=== PATIENT | female | born 1950 | race Caucasian/White ===

== ENCOUNTER 2024-06-13 15:23 | Inpatient (IN) | payer MEDICARE ==
[~2024-06-13] VITALS: Ht 162.6 cm; Wt 146.1 kg
[2024-06-13 17:00] LABS: BASOPHILS % 0.3 % (0.0-1.0); HEMATOCRIT 33.6 % (34.2-44.1); HEMOGLOBIN 11.2 g/dL (12.0-16.0); LYMPHOCYTES # (AUTO) 0.8 (1.0-3.2); LYMPHOCYTES % 10.2 % (18.0-39.1); MEAN CORPUSCULAR HGB CONC 33.3 g/dL (31-35); MONOCYTES # (AUTO) 0.6 (0.2-0.8); MONOCYTES % 8.2 % (4.4-11.3); PLATELET COUNT 50 x10e3/uL (140-360); RED CELL DISTRIBUTION WIDTH 13.8 % (11.7-14.4); WHITE BLOOD COUNT 7.35 x10e3/uL (4.8-10.8)
[2024-06-13 17:34] LABS: ALBUMIN 2.3 g/dL (3.5-5.0); ALBUMIN/GLOBULIN RATIO 0.5 (0.8-2.0); BILIRUBIN,TOTAL 2.7 mg/dL (0.2-1.2); CALCIUM 8.7 mg/dL (8.4-10.2); CREATININE, SERUM 0.96 mg/dL (0.57-1.11)
[2024-06-13 17:35] LABS: INR 1.4; PROTHROMBIN TIME 17.8 seconds (11.9-14.5)
[2024-06-13 17:36] LABS: PARTIAL THROMBOPLASTIN TIME 37.4 seconds (23.8-35.5)
[2024-06-13] MEDS: TRAMADOL HCL 50 MG TAB PO ONE (17:38)
[2024-06-13] MEDS ORDERED: SODIUM CHLORIDE FLUSH 10 ML SYR INJ PRN (18:30)
[2024-06-13] MEDS ORDERED: ONDANSETRON HCL INJ 2MG/ML 2ML 2 MG/ML VIAL IV PRN (18:30)
[2024-06-13 19:21] VITALS: TEMP 99.8
[2024-06-13 20:00] VITALS: BP 135/58; PULSE 83; RESP 16; TEMP 98.8; O2SAT 97
[2024-06-13 20:06] VITALS: PULSE 78; RESP 19
[2024-06-13 21:00] VITALS: BP 135/58; PULSE 83; RESP 16; TEMP 98.8; O2SAT 97
[2024-06-13] MEDS: HYDROCODONE/APAP 5MG-325MG TAB PO PRN (22:08)
[2024-06-13] MEDS: FUROSEMIDE INJ 10 MG/ML 4 ML VIAL IV SCH (22:09)
[2024-06-13] MEDS ORDERED: FUROSEMIDE20 MG PO (22:44)
[2024-06-13] MEDS ORDERED: TRIAMCINOLONE A15 G3 EXT (22:44)
[2024-06-13] MEDS ORDERED: CARVEDILOL12.5 MG PO (22:44)
[2024-06-13] MEDS ORDERED: MUPIROCIN22 GM EXT (22:44)
[2024-06-13] MEDS ORDERED: GLIMEPIRIDE1 MG PO (22:44)
[2024-06-13] MEDS ORDERED: ASPIRIN81 MG PO (22:44)
[2024-06-13] MEDS ORDERED: FLUTICASONE PRO16 GM IH (22:44)
[2024-06-13] MEDS ORDERED: MAGNESIUM OXID500 MG PO (22:44)
[2024-06-13] MEDS ORDERED: PANTOPRAZOLE SO40 MG PO (22:44)
[2024-06-13] MEDS ORDERED: CYCLOBENZAPRINE10 MG PO (22:44)
[2024-06-13] MEDS ORDERED: D3-5000125 MCG PO (22:46)
[2024-06-14] VITALS (8 sets, daily range): BP systolic 106–134; BP diastolic 47–67; PULSE 76–93; RESP 18–23; TEMP 98.1–99.9; O2SAT 94–99
[2024-06-14 05:42] LABS: BASOPHILS % 0.1 % (0.0-1.0); HEMATOCRIT 30.2 % (34.2-44.1); HEMOGLOBIN 10.1 g/dL (12.0-16.0); LYMPHOCYTES # (AUTO) 0.9 (1.0-3.2); LYMPHOCYTES % 11.9 % (18.0-39.1); MEAN CORPUSCULAR HEMOGLOBIN 34.9 pg (28-32); MEAN CORPUSCULAR HGB CONC 33.4 g/dL (31-35); MEAN CORPUSCULAR VOLUME 104.5 fL (81-99); MONOCYTES # (AUTO) 1.1 (0.2-0.8); MONOCYTES % 13.4 % (4.4-11.3); NEUTROPHILS # (AUTO) 5.8 (2.1-6.9); NEUTROPHILS % 74.2 % (38.7-80.0); PLATELET COUNT 60 x10e3/uL (140-360); RED BLOOD COUNT 2.89 x10e6/uL (3.6-5.1); RED CELL DISTRIBUTION WIDTH 13.8 % (11.7-14.4); WHITE BLOOD COUNT 7.81 x10e3/uL (4.8-10.8)
[2024-06-14 06:16] LABS: ALBUMIN 2.1 g/dL (3.5-5.0); ALBUMIN/GLOBULIN RATIO 0.5 (0.8-2.0); ANION GAP 12.6 mmol/L (8-16); BILIRUBIN,TOTAL 2.5 mg/dL (0.2-1.2); CALCIUM 8.3 mg/dL (8.4-10.2); CREATININE, SERUM 0.99 mg/dL (0.57-1.11); POTASSIUM 3.6 mmol/L (3.5-5.1); TOTAL PROTEIN 6.4 g/dL (6.5-8.1)
[2024-06-14] MEDS ORDERED: DEXTROSE 50% SYRINGE 50 ML IV PRN (11:30)
[2024-06-14] MEDS: INSULIN LISPRO 100 UNIT/1 ML 3ML VIAL SQ SCH (11:30)
[2024-06-14] MEDS: PANTOPRAZOLE SOD 40 MG TABEC PO SCH (15:41)
[2024-06-14] MEDS: CYCLOBENZAPRINE HCL 10 MG TAB PO PRN (15:43)
[2024-06-14] MEDS: MAGNESIUM OXIDE 400 MG TAB PO SCH (17:04)
[2024-06-14] MEDS: CARVEDILOL 12.5 MG TAB PO SCH (17:05)
[2024-06-15] VITALS: BP 134/52; PULSE 95; RESP 18; TEMP 98.2; O2SAT 94
[2024-06-15 04:00] VITALS: BP 124/72; PULSE 92; RESP 16; TEMP 99.9; O2SAT 95
[2024-06-15 05:46] LABS: BASOPHILS % 0.3 % (0.0-1.0); EOSINOPHILS % 0.5 % (0.0-6.0); HEMATOCRIT 29.4 % (34.2-44.1); HEMOGLOBIN 9.8 g/dL (12.0-16.0); LYMPHOCYTES # (AUTO) 0.9 (1.0-3.2); MEAN CORPUSCULAR HGB CONC 33.3 g/dL (31-35); MONOCYTES # (AUTO) 0.8 (0.2-0.8); MONOCYTES % 12.1 % (4.4-11.3); NEUTROPHILS # (AUTO) 4.7 (2.1-6.9); NEUTROPHILS % 72.8 % (38.7-80.0); PLATELET COUNT 52 x10e3/uL (140-360); RED CELL DISTRIBUTION WIDTH 14.1 % (11.7-14.4); WHITE BLOOD COUNT 6.45 x10e3/uL (4.8-10.8)
[2024-06-15 05:58] LABS: INR 1.41; PROTHROMBIN TIME 17.9 seconds (11.9-14.5)
[2024-06-15 06:08] LABS: ANION GAP 11.4 mmol/L (8-16); CALCIUM 8.5 mg/dL (8.4-10.2); CREATININE, SERUM 1.1 mg/dL (0.57-1.11)
[2024-06-15 06:10] LABS: POTASSIUM 3.4 mmol/L (3.5-5.1)
[2024-06-15] MEDS: ASPIRIN 81 MG CHEW TAB PO SCH (08:35)
[2024-06-15] MEDS: GLIMEPIRIDE 2 MG TAB PO SCH (08:36)
[2024-06-15] MEDS: FLUTICASONE PROPIONATE NASAL SPRAY NS SCH (08:36)
[2024-06-15 09:20] VITALS: BP 124/72; PULSE 92; RESP 16; TEMP 99.9; O2SAT 95
[2024-06-15 11:41] VITALS: BP 111/60; PULSE 85; RESP 18; TEMP 99.1; O2SAT 93
[2024-06-15 16:00] VITALS: BP 114/58; PULSE 86; RESP 18; TEMP 98.6; O2SAT 95
[2024-06-15] MEDS: GABAPENTIN 100 MG CAP PO SCH (17:09)
[2024-06-15] MEDS: POTASSIUM CHLORIDE 10MEQ EA PO ONE (18:15)
[2024-06-15 20:58] VITALS: BP 131/71; PULSE 88; RESP 20; TEMP 98.9; O2SAT 95
[2024-06-15] MEDS: FUROSEMIDE INJ 10 MG/ML 4 ML VIAL IV SCH (21:08)
[2024-06-16] VITALS (8 sets, daily range): BP systolic 114–132; BP diastolic 57–74; PULSE 79–88; RESP 17–20; TEMP 98–99.2; O2SAT 94–96
[2024-06-16 05:33] LABS: BASOPHILS % 0.4 % (0.0-1.0); EOSINOPHILS # (AUTO) 0.2 (0.0-0.4); EOSINOPHILS % 2.7 % (0.0-6.0); HEMATOCRIT 29.8 % (34.2-44.1); HEMOGLOBIN 9.8 g/dL (12.0-16.0); LYMPHOCYTES % 17.6 % (18.0-39.1); MEAN CORPUSCULAR HEMOGLOBIN 34.5 pg (28-32); MEAN CORPUSCULAR HGB CONC 32.9 g/dL (31-35); MEAN CORPUSCULAR VOLUME 104.9 fL (81-99); MONOCYTES # (AUTO) 0.7 (0.2-0.8); MONOCYTES % 12.9 % (4.4-11.3); NEUTROPHILS # (AUTO) 3.6 (2.1-6.9); PLATELET COUNT 57 x10e3/uL (140-360); RED BLOOD COUNT 2.84 x10e6/uL (3.6-5.1)
[2024-06-16 05:57] LABS: ALBUMIN 1.9 g/dL (3.5-5.0); ALBUMIN/GLOBULIN RATIO 0.4 (0.8-2.0); ANION GAP 11.9 mmol/L (8-16); BILIRUBIN,TOTAL 1.5 mg/dL (0.2-1.2); CALCIUM 8.5 mg/dL (8.4-10.2); CREATININE, SERUM 1.12 mg/dL (0.57-1.11); POTASSIUM 3.9 mmol/L (3.5-5.1); TOTAL PROTEIN 6.6 g/dL (6.5-8.1)
[2024-06-17] VITALS (9 sets, daily range): BP systolic 100–137; BP diastolic 58–74; PULSE 76–87; RESP 16–23; TEMP 98–98.8; O2SAT 93–98
[2024-06-17 05:45] LABS: ANION GAP 12.5 mmol/L (8-16); CALCIUM 8.5 mg/dL (8.4-10.2); CREATININE, SERUM 1.07 mg/dL (0.57-1.11); POTASSIUM 3.5 mmol/L (3.5-5.1)
[2024-06-17] MEDS: METOLAZONE 5 MG TAB PO ONE (15:22)
[2024-06-17] MEDS: COLCHICINE 0.6 MG TAB PO SCH (18:30)
[2024-06-18] VITALS: BP 125/60; PULSE 85; RESP 18; TEMP 98.4; O2SAT 96
[2024-06-18 04:00] VITALS: BP 118/59; PULSE 78; RESP 17; TEMP 97.9; O2SAT 95
[2024-06-18 07:35] VITALS: BP 125/55; PULSE 76; RESP 15; TEMP 98.2; O2SAT 93
[2024-06-18 08:58] VITALS: BP 125/55; PULSE 76; RESP 15; TEMP 98.2; O2SAT 93
[2024-06-18 11:26] VITALS: BP 107/55; PULSE 77; RESP 18; TEMP 98.5; O2SAT 93
[2024-06-18 13:35] LABS: ANION GAP 14.2 mmol/L (8-16); CALCIUM 8.9 mg/dL (8.4-10.2); CREATININE, SERUM 1.25 mg/dL (0.57-1.11)
[2024-06-18 13:44] LABS: POTASSIUM 3.2 mmol/L (3.5-5.1)
[2024-06-18] MEDS: DOCUSATE SODIUM 100 MG CAP PO SCH (17:39)
[2024-06-18 20:00] VITALS: BP 136/67; PULSE 80; RESP 18; TEMP 98.1; O2SAT 94
[2024-06-19] VITALS (7 sets, daily range): BP systolic 115–131; BP diastolic 55–74; PULSE 70–85; RESP 17–19; TEMP 97.6–98.6; O2SAT 93–99
[2024-06-19 07:32] LABS: BASOPHILS % 0.3 % (0.0-1.0); EOSINOPHILS # (AUTO) 0.1 (0.0-0.4); EOSINOPHILS % 2.3 % (0.0-6.0); HEMATOCRIT 29.5 % (34.2-44.1); HEMOGLOBIN 10.3 g/dL (12.0-16.0); LYMPHOCYTES # (AUTO) 0.7 (1.0-3.2); LYMPHOCYTES % 17.7 % (18.0-39.1); MEAN CORPUSCULAR HEMOGLOBIN 34.8 pg (28-32); MEAN CORPUSCULAR HGB CONC 34.9 g/dL (31-35); MEAN CORPUSCULAR VOLUME 99.7 fL (81-99); MONOCYTES # (AUTO) 0.5 (0.2-0.8); MONOCYTES % 12.8 % (4.4-11.3); NEUTROPHILS # (AUTO) 2.5 (2.1-6.9); NEUTROPHILS % 66.1 % (38.7-80.0); RED BLOOD COUNT 2.96 x10e6/uL (3.6-5.1); RED CELL DISTRIBUTION WIDTH 14.1 % (11.7-14.4); WHITE BLOOD COUNT 3.84 x10e3/uL (4.8-10.8)
[2024-06-19 07:39] LABS: PLATELET COUNT 57 x10e3/uL (140-360)
[2024-06-19 07:51] LABS: CALCIUM 9.2 mg/dL (8.4-10.2); CREATININE, SERUM 1.11 mg/dL (0.57-1.11)
[2024-06-19] MEDS: POTASSIUM CHLORIDE 20 MEQ TAB CR PO ONE (11:03)
[2024-06-19] MEDS ORDERED: HYDROCODONE/APAP 5MG-325MG TAB PO PRN (13:45)
[2024-06-20] VITALS (7 sets, daily range): BP systolic 113–131; BP diastolic 52–76; PULSE 73–77; RESP 18–22; TEMP 97.4–97.9; O2SAT 95–100
[2024-06-20 05:57] LABS: CALCIUM 9.1 mg/dL (8.4-10.2); CREATININE, SERUM 1.21 mg/dL (0.57-1.11)
[2024-06-20] MEDS ORDERED: POTASSIUM CHLORIDE 10MEQ EA PO PRN (13:00)
[2024-06-20] MEDS: POTASSIUM CHLORIDE 10MEQ EA PO ONE (13:58)
[2024-06-20] MEDS ORDERED: GABAPENTIN 100 MG CAP PO SCH (21:00)
== END 2024-06-20 19:49 | DRG 607 ==
LOC: ER 15:36 → ERHOLD 18:23 → MED/SURG 20:12 → OBSVTOIN 06-15 11:06
PROVIDERS: ADMIT Internal Medicine; ATTEND Internal Medicine
DX: I89.0 Lymphedema, not elsewhere classified (principal); E66.01 Morbid (severe) obesity due to excess calories; Z68.43 Body mass index [BMI] 50.0-59.9, adult; D69.59 Other secondary thrombocytopenia; K74.60 Unspecified cirrhosis of liver; E11.9 Type 2 diabetes mellitus without complications; I10 Essential (primary) hypertension; M10.9 Gout, unspecified; K76.0 Fatty (change of) liver, not elsewhere classified; R60.0 Localized edema; Z79.82 Long term (current) use of aspirin; Z79.84 Long term (current) use of oral hypoglycemic drugs; Z90.49 Acquired absence of other specified parts of digestive tract
CPT/HCPCS: 36415; 51700; 72125; 72128; 72131; 72192; 80048; 80053; 82948; 83880; 84550; 85025; 85610; 85730; 93005; 93971; 96372; 99284; G0378; J1940

== ENCOUNTER 2024-08-04 14:33 | Inpatient (IN) | payer MEDICARE ==
[~2024-08-04] VITALS: Ht 162.6 cm; Wt 129.7 kg
[~2024-08-04 14:33] MED LIST: ASPIRIN81 MG PO; CARVEDILOL12.5 MG PO; CYCLOBENZAPRINE10 MG PO; D3-5000125 MCG PO; FLUTICASONE PRO16 GM IH; FUROSEMIDE20 MG PO; GLIMEPIRIDE1 MG PO; MAGNESIUM OXID500 MG PO; MUPIROCIN22 GM EXT; PANTOPRAZOLE SO40 MG PO; TRIAMCINOLONE A15 G3 EXT
[2024-08-04 15:04] LABS: BASOPHILS % 0.4 % (0.0-1.0); EOSINOPHILS # (AUTO) 0.1 (0.0-0.4); EOSINOPHILS % 2.2 % (0.0-6.0); HEMATOCRIT 34.1 % (34.2-44.1); HEMOGLOBIN 11.1 g/dL (12.0-16.0); LYMPHOCYTES # (AUTO) 0.8 (1.0-3.2); LYMPHOCYTES % 15.9 % (18.0-39.1); MEAN CORPUSCULAR HEMOGLOBIN 35.2 pg (28-32); MEAN CORPUSCULAR HGB CONC 32.6 g/dL (31-35); MEAN CORPUSCULAR VOLUME 108.3 fL (81-99); MONOCYTES # (AUTO) 0.5 (0.2-0.8); MONOCYTES % 9.7 % (4.4-11.3); NEUTROPHILS # (AUTO) 3.6 (2.1-6.9); NEUTROPHILS % 71.6 % (38.7-80.0); RED BLOOD COUNT 3.15 x10e6/uL (3.6-5.1); RED CELL DISTRIBUTION WIDTH 14.6 % (11.7-14.4); WHITE BLOOD COUNT 4.96 x10e3/uL (4.8-10.8)
[2024-08-04 15:05] LABS: PLATELET COUNT 67 x10e3/uL (140-360)
[2024-08-04 15:09] LABS: INR 1.23; PROTHROMBIN TIME 16.2 seconds (11.9-14.5)
[2024-08-04 15:10] LABS: PARTIAL THROMBOPLASTIN TIME 34.5 seconds (23.8-35.5)
[2024-08-04 15:16] LABS: ALBUMIN 2.5 g/dL (3.5-5.0); ALBUMIN/GLOBULIN RATIO 0.5 (0.8-2.0); ANION GAP 14.1 mmol/L (8-16); BILIRUBIN,TOTAL 2.3 mg/dL (0.2-1.2); CALCIUM 8.7 mg/dL (8.4-10.2); CREATININE, SERUM 1.12 mg/dL (0.57-1.11); POTASSIUM 4.1 mmol/L (3.5-5.1); TOTAL PROTEIN 7.4 g/dL (6.5-8.1)
[2024-08-04] MEDS ORDERED: SODIUM CHLORIDE FLUSH 10 ML SYR INJ PRN (18:00)
[2024-08-04] MEDS ORDERED: ONDANSETRON HCL INJ 2MG/ML 2ML 2 MG/ML VIAL IV PRN (18:00)
[2024-08-04] MEDS: FUROSEMIDE INJ 10 MG/ML 4 ML VIAL IV SCH (18:52)
[2024-08-04 19:03] VITALS: PULSE 94; RESP 20; TEMP 98.5
[2024-08-04 20:14] VITALS: BP 126/63; PULSE 80; RESP 20; TEMP 97.2; O2SAT 95
[2024-08-04 23:02] VITALS: BP 148/60; PULSE 89; RESP 20; TEMP 97.9; O2SAT 100
[2024-08-04 23:05] VITALS: BP 112/46; PULSE 88; RESP 21; TEMP 97.9; O2SAT 99
[2024-08-04] MEDS: ACETAMINOPHEN 325 MG TAB PO PRN (23:27)
[2024-08-05] VITALS (9 sets, daily range): BP systolic 112–122; BP diastolic 46–64; PULSE 75–88; RESP 18–50; TEMP 96.5–98.2; O2SAT 96–100
[2024-08-05] MEDS ORDERED: ALBUTEROL SULF 0.083% NEB SOLN 3 ML NEB NEB PRN (01:00)
[2024-08-05] MEDS ORDERED: MELATONIN 3 MG TAB PO PRN (01:00)
[2024-08-05] MEDS ORDERED: GUAIFENESIN/DEXTROMETHORPHAN LIQD 5 ML UDC PO PRN (01:00)
[2024-08-05] MEDS ORDERED: DEXTROSE 50% SYRINGE 50 ML IV PRN (01:00)
[2024-08-05] MEDS ORDERED: POLYETHYLENE GLYCOL 3350 17 GM PACK PO PRN (01:00)
[2024-08-05] MEDS ORDERED: HYDRALAZINE HCL 20 MG/ML VIAL IV PRN (01:00)
[2024-08-05 06:17] LABS: BASOPHILS % 0.5 % (0.0-1.0); EOSINOPHILS # (AUTO) 0.1 (0.0-0.4); EOSINOPHILS % 2.4 % (0.0-6.0); HEMATOCRIT 28.5 % (34.2-44.1); HEMOGLOBIN 9.3 g/dL (12.0-16.0); LYMPHOCYTES # (AUTO) 0.9 (1.0-3.2); LYMPHOCYTES % 22.3 % (18.0-39.1); MEAN CORPUSCULAR HEMOGLOBIN 35.4 pg (28-32); MEAN CORPUSCULAR HGB CONC 32.6 g/dL (31-35); MEAN CORPUSCULAR VOLUME 108.4 fL (81-99); MONOCYTES # (AUTO) 0.6 (0.2-0.8); MONOCYTES % 14.7 % (4.4-11.3); NEUTROPHILS # (AUTO) 2.3 (2.1-6.9); NEUTROPHILS % 59.8 % (38.7-80.0); PLATELET COUNT 56 x10e3/uL (140-360); RED BLOOD COUNT 2.63 x10e6/uL (3.6-5.1); RED CELL DISTRIBUTION WIDTH 14.8 % (11.7-14.4); WHITE BLOOD COUNT 3.81 x10e3/uL (4.8-10.8)
[2024-08-05] MEDS: FUROSEMIDE INJ 10 MG/ML 4 ML VIAL IV SCH (06:44)
[2024-08-05 06:48] LABS: ALBUMIN 2.1 g/dL (3.5-5.0); ALBUMIN/GLOBULIN RATIO 0.5 (0.8-2.0); ANION GAP 12.3 mmol/L (8-16); BILIRUBIN,TOTAL 1.6 mg/dL (0.2-1.2); CALCIUM 8.2 mg/dL (8.4-10.2); CREATININE, SERUM 0.96 mg/dL (0.57-1.11); TOTAL PROTEIN 6.2 g/dL (6.5-8.1)
[2024-08-05 06:57] LABS: POTASSIUM 3.3 mmol/L (3.5-5.1)
[2024-08-05] MEDS: INSULIN REGULAR, HUMAN 100 UNIT/1 ML SQ SCH (07:30)
[2024-08-05] MEDS: PANTOPRAZOLE SOD 40 MG TABEC PO SCH (08:17)
[2024-08-05] MEDS: DOCUSATE SODIUM 100 MG CAP PO SCH (08:17)
[2024-08-05] MEDS: ASPIRIN 81 MG CHEW TAB PO SCH (08:17)
[2024-08-05] MEDS: CARVEDILOL 12.5 MG TAB PO SCH (08:17)
[2024-08-05] MEDS: FLUTICASONE PROPIONATE NASAL SPRAY NS SCH (10:03)
[2024-08-05] MEDS ORDERED: ONDANSETRON HCL INJ 2MG/ML 2ML 2 MG/ML VIAL IV PRN (11:30)
[2024-08-05] MEDS: POTASSIUM CHLORIDE 10MEQ/100ML 100 ML IV ONE (11:55)
[2024-08-05] MEDS: POTASSIUM CHLORIDE 20 MEQ TAB CR PO ONE (14:14)
[2024-08-05] MEDS: MUPIROCIN 2% OINT 22 GM TUBE TOP SCH (16:00)
[2024-08-05] MEDS: SODIUM CHLORIDE 0.9% 500ML 500 ML ONE (19:06)
[2024-08-06] VITALS (9 sets, daily range): BP systolic 115–134; BP diastolic 61–75; PULSE 77–104; RESP 18–20; TEMP 97.9–98.7; O2SAT 93–99
[2024-08-06 06:08] LABS: ANION GAP 13.2 mmol/L (8-16); CALCIUM 8.2 mg/dL (8.4-10.2); CREATININE, SERUM 0.93 mg/dL (0.57-1.11); POTASSIUM 3.2 mmol/L (3.5-5.1)
[2024-08-06] MEDS: SPIRONOLACTONE 25 MG TAB PO SCH (14:27)
[2024-08-06] MEDS: MAGNESIUM OXIDE 400 MG TAB PO SCH (16:58)
[2024-08-06] MEDS: TRIAMCINOLONE 0.1% OINTMENT 15 GM TUBE TOP SCH (17:00)
[2024-08-06] MEDS: POTASSIUM CHLORIDE 10MEQ EA PO PRN (17:05)
[2024-08-06 22:57] LABS: % IRON SATURATION 33 % (15-50); IRON 66 ug/dL (50-170); TOTAL IRON BINDING CAPACITY 202 ug/dL (261-478); TRANSFERRIN 144 mg/dL (180-382)
[2024-08-07] VITALS (11 sets, daily range): BP systolic 106–138; BP diastolic 62–98; PULSE 60–87; RESP 18–20; TEMP 98–98.6; O2SAT 95–100
[2024-08-07 05:46] LABS: BASOPHILS % 0.2 % (0.0-1.0); EOSINOPHILS # (AUTO) 0.1 (0.0-0.4); EOSINOPHILS % 3.4 % (0.0-6.0); HEMATOCRIT 30.4 % (34.2-44.1); HEMOGLOBIN 9.9 g/dL (12.0-16.0); LYMPHOCYTES # (AUTO) 0.9 (1.0-3.2); LYMPHOCYTES % 21.5 % (18.0-39.1); MEAN CORPUSCULAR HEMOGLOBIN 35.1 pg (28-32); MEAN CORPUSCULAR HGB CONC 32.6 g/dL (31-35); MEAN CORPUSCULAR VOLUME 107.8 fL (81-99); MONOCYTES # (AUTO) 0.5 (0.2-0.8); MONOCYTES % 11.5 % (4.4-11.3); NEUTROPHILS # (AUTO) 2.6 (2.1-6.9); NEUTROPHILS % 63.2 % (38.7-80.0); PLATELET COUNT 56 x10e3/uL (140-360); RED BLOOD COUNT 2.82 x10e6/uL (3.6-5.1); RED CELL DISTRIBUTION WIDTH 14.6 % (11.7-14.4)
[2024-08-07 06:22] LABS: ANION GAP 14.3 mmol/L (8-16); CALCIUM 8.3 mg/dL (8.4-10.2); CREATININE, SERUM 1.01 mg/dL (0.57-1.11)
[2024-08-07 06:23] LABS: POTASSIUM 3.3 mmol/L (3.5-5.1)
[2024-08-07] MEDS: GLIMEPIRIDE 2 MG TAB PO SCH (08:38)
[2024-08-07] MEDS: DOXYCYCLINE HYCLATE TABLET 100 MG TAB PO SCH (21:13)
[2024-08-08] VITALS (11 sets, daily range): BP systolic 107–133; BP diastolic 54–76; PULSE 68–87; RESP 18–20; TEMP 97.5–98.7; O2SAT 96–100
[2024-08-08 05:57] LABS: BASOPHILS % 0.5 % (0.0-1.0); EOSINOPHILS # (AUTO) 0.1 (0.0-0.4); EOSINOPHILS % 2.5 % (0.0-6.0); HEMATOCRIT 29.1 % (34.2-44.1); HEMOGLOBIN 9.5 g/dL (12.0-16.0); LYMPHOCYTES # (AUTO) 1.1 (1.0-3.2); LYMPHOCYTES % 18.9 % (18.0-39.1); MEAN CORPUSCULAR HEMOGLOBIN 35.3 pg (28-32); MEAN CORPUSCULAR HGB CONC 32.6 g/dL (31-35); MEAN CORPUSCULAR VOLUME 108.2 fL (81-99); MONOCYTES # (AUTO) 0.8 (0.2-0.8); MONOCYTES % 13.5 % (4.4-11.3); NEUTROPHILS # (AUTO) 3.6 (2.1-6.9); NEUTROPHILS % 64.4 % (38.7-80.0); PLATELET COUNT 63 x10e3/uL (140-360); RED BLOOD COUNT 2.69 x10e6/uL (3.6-5.1); RED CELL DISTRIBUTION WIDTH 14.7 % (11.7-14.4); WHITE BLOOD COUNT 5.65 x10e3/uL (4.8-10.8)
[2024-08-08 06:24] LABS: ANION GAP 14.4 mmol/L (8-16); CALCIUM 8.2 mg/dL (8.4-10.2); CREATININE, SERUM 1.06 mg/dL (0.57-1.11)
[2024-08-08 06:26] LABS: POTASSIUM 3.4 mmol/L (3.5-5.1)
[2024-08-08] MEDS: SPIRONOLACTONE 25 MG TAB PO SCH (09:02)
[2024-08-08 10:47] LABS: HEPATITIS A ANTIBODY IGM (P) NONREACTIVE; HEPATITIS B CORE IGM (P) NONREACTIVE; HEPATITIS B SURFACE AG (P) NONREACTIVE; HEPATITIS C ANTIBODY NONREACTIVE
[2024-08-08] MEDS: MAGNESIUM SULFATE 2GM/50ML 50 ML IV ONE (20:47)
[2024-08-09 03:10] VITALS: BP 116/54; PULSE 79; RESP 18; TEMP 98.1; O2SAT 95
[2024-08-09 06:59] LABS: ANION GAP 13.2 mmol/L (8-16); CALCIUM 8.2 mg/dL (8.4-10.2); CREATININE, SERUM 1.06 mg/dL (0.57-1.11)
[2024-08-09 07:00] LABS: POTASSIUM 3.2 mmol/L (3.5-5.1)
[2024-08-09 07:48] VITALS: BP 120/53; PULSE 74; RESP 18; TEMP 98.1; O2SAT 98
[2024-08-09] MEDS: CYCLOBENZAPRINE HCL 10 MG TAB PO PRN (08:48)
[2024-08-09 09:00] VITALS: BP 120/53; PULSE 74; TEMP 98.1; O2SAT 98
[2024-08-09 11:58] VITALS: BP 135/69; PULSE 80; RESP 18; TEMP 98.2; O2SAT 99
[2024-08-09] MEDS: TRAMADOL HCL 50 MG TAB PO PRN (13:18)
[2024-08-09 16:19] VITALS: BP 122/48; PULSE 77; RESP 18; TEMP 97.5; O2SAT 97
[2024-08-09 19:30] VITALS: BP 123/65; PULSE 84; RESP 20; TEMP 97.9; O2SAT 97
[2024-08-09] MEDS ORDERED: LIDOCAINE VISC 2% SOLN 15 ML UDC ONE (21:07)
[2024-08-09] MEDS ORDERED: BELLADONNA ALK/PHENOBARBITAL 5 ML UDC ONE (21:08)
[2024-08-09] MEDS ORDERED: MAGNESIUM/ALUMINUM/SIMETHICONE 30 ML UDC ONE (21:08)
[2024-08-09] MEDS: FOLIC ACID 1 MG TAB PO ONE (21:15)
[2024-08-09] MEDS: MAGNESIUM/ALUMINUM/SIMETHICONE 30 ML UDC PO PRN (22:38)
[2024-08-09] MEDS: DONNATAL/LIDOCAINE/MAALOX 30 ML SUSP PO PRN (22:39)
[2024-08-10] VITALS (7 sets, daily range): BP systolic 107–133; BP diastolic 43–60; PULSE 77–93; RESP 18; TEMP 97.9–98.6; O2SAT 95–98
[2024-08-10 05:49] LABS: BASOPHILS % 0.4 % (0.0-1.0); EOSINOPHILS # (AUTO) 0.2 (0.0-0.4); HEMATOCRIT 29.2 % (34.2-44.1); HEMOGLOBIN 9.5 g/dL (12.0-16.0); LYMPHOCYTES # (AUTO) 0.8 (1.0-3.2); LYMPHOCYTES % 17.5 % (18.0-39.1); MEAN CORPUSCULAR HEMOGLOBIN 35.6 pg (28-32); MEAN CORPUSCULAR HGB CONC 32.5 g/dL (31-35); MEAN CORPUSCULAR VOLUME 109.4 fL (81-99); MONOCYTES # (AUTO) 0.6 (0.2-0.8); MONOCYTES % 11.5 % (4.4-11.3); NEUTROPHILS # (AUTO) 3.2 (2.1-6.9); NEUTROPHILS % 66.4 % (38.7-80.0); PLATELET COUNT 55 x10e3/uL (140-360); RED BLOOD COUNT 2.67 x10e6/uL (3.6-5.1); RED CELL DISTRIBUTION WIDTH 14.9 % (11.7-14.4); WHITE BLOOD COUNT 4.79 x10e3/uL (4.8-10.8)
[2024-08-10 06:20] LABS: ANION GAP 13.8 mmol/L (8-16); CREATININE, SERUM 1.37 mg/dL (0.57-1.11); POTASSIUM 3.8 mmol/L (3.5-5.1)
[2024-08-10] MEDS: FOLIC ACID 1 MG TAB PO SCH (09:45)
[2024-08-10] MEDS ORDERED: ULTRAM 50MG50 MG PO ×2 (14:15→21:53)
[2024-08-10] MEDS ORDERED: ALDACTONE25 MG PO (14:15)
[2024-08-10] MEDS ORDERED: LASIX40 MG PO (14:15)
[2024-08-10] MEDS ORDERED: ONDANSETRON HCL 4 MG ORAL DISINTEGRATING TAB PO PRN (15:15)
[2024-08-11] MEDS ORDERED: SPIRONOLACTONE 25 MG TAB PO SCH (09:00)
[2024-08-11 10:16] LABS: ALPHA-1-ANTITRYPSIN 183 mg/dL (101-187)
[2024-08-11 17:59] LABS: ANTI-MITOCHONDRIAL AB SCREEN <20.0 Units (0.0-20.0)
== END 2024-08-10 18:43 | disposition home or self-care (01) | DRG 433 ==
LOC: ER 15:26 → ERHOLD 17:52 → MED/SURG2 22:23 → OBSVTOIN 08-05 11:19
PROVIDERS: ADMIT Internal Medicine; ATTEND Internal Medicine
DX: K74.60 Unspecified cirrhosis of liver (principal); I50.32 Chronic diastolic (congestive) heart failure; Z68.43 Body mass index [BMI] 50.0-59.9, adult; E66.01 Morbid (severe) obesity due to excess calories; E87.79 Other fluid overload; I11.0 Hypertensive heart disease with heart failure; D63.8 Anemia in other chronic diseases classified elsewhere; S31.109A Unspecified open wound of abdominal wall, unspecified quadrant without penetration into peritoneal cavity, initial encounter; E11.9 Type 2 diabetes mellitus without complications; D69.59 Other secondary thrombocytopenia; E87.6 Hypokalemia; K76.0 Fatty (change of) liver, not elsewhere classified; G47.33 Obstructive sleep apnea (adult) (pediatric); R53.81 Other malaise; X58.XXXA Exposure to other specified factors, initial encounter; Z79.82 Long term (current) use of aspirin; Z79.51 Long term (current) use of inhaled steroids; Z79.84 Long term (current) use of oral hypoglycemic drugs; Z96.0 Presence of urogenital implants; Z90.49 Acquired absence of other specified parts of digestive tract; Z82.49 Family history of ischemic heart disease and other diseases of the circulatory system
CPT/HCPCS: 36415; 71045; 74018; 76700; 80048; 80053; 82103; 82390; 82607; 82746; 82948; 83540; 83735; 83880; 84466; 84484; 85025; 85045; 85610; 85730; 86039; 86255; 93005; 93306; 94799; 99252; 99284; G0378; J1940; J3475; J3480; J7040

== ENCOUNTER 2024-09-03 14:17 | Emergency (ER) | payer MEDICARE ==
[~2024-09-03] VITALS: Ht 162.6 cm; Wt 129.7 kg
[~2024-09-03 14:17] MED LIST changes: +ALDACTONE25 MG PO; +LASIX40 MG PO; +ULTRAM 50MG50 MG PO
[2024-09-03 17:30] VITALS: PULSE 77; RESP 16; TEMP 97; O2SAT 99
== END 2024-09-03 17:35 | disposition home or self-care (01) ==
LOC: ER 15:03
DX: R25.1 Tremor, unspecified (principal); I10 Essential (primary) hypertension; E11.9 Type 2 diabetes mellitus without complications; K76.9 Liver disease, unspecified; E66.01 Morbid (severe) obesity due to excess calories; Z86.718 Personal history of other venous thrombosis and embolism
CPT/HCPCS: 70450; 87086; 87186; 99283